=== PATIENT | female | born 1995 | race Caucasian/White ===

== ENCOUNTER 2016-11-11 21:02 | Emergency (ER) | payer OTHER ==
[~2016-11-11] VITALS: Ht 170.2 cm; Wt 56.0 kg
[2016-11-11 21:11] VITALS: TEMP 37.2; Ht 170.2 cm; Wt 56.0 kg
[2016-11-11] MEDS ORDERED: PRENTAB65 PO (21:15)
[2016-11-11] MEDS ORDERED: SODIUM CHLORIDE 0.9% 1000ML 1,000 ML IV STA ×2 (21:27)
[2016-11-11] MEDS ORDERED: ONDANSETRON INJ 2 MG/ML 2 ML VIAL IV STA (21:27)
[2016-11-11 21:34] VITALS: O2SAT 97
[2016-11-11 22:01] LABS: BASO % 0.2 %; BASO ABS # 0.02 K/uL (0-0.2); COMPLETE YES; EOS % 2.3 %; HEMATOCRIT 31.7 % (37-47); IG% 0.3 %; LYMPH % 19.1 %; LYMPH ABS # 1.74 K/uL (1.2-3.4); MEAN CELL VOLUME 82.8 fL (80-100); MEAN CORPUSCULAR HEMOGLOBIN 27.7 pg (25-34); MEAN CORPUSCULAR HGB CONC 33.4 g/dl (32-36); MEAN PLATELET VOLUME 9.7 fL (7.4-10.4); MONO % 5.4 %; NEUT % 72.7 %; PLATELET COUNT 217 K/uL (130-400); RED BLOOD COUNT 3.83 M/uL (4.2-5.4); WHITE BLOOD COUNT 9.09 K/uL (4.8-10.8)
[2016-11-11 22:10] LABS: PARTIAL THROMBOPLASTIN RATIO 0.9; PROTHROMBIN TIME (PATIENT) 10.7 SECONDS (9.0-12.0)
[2016-11-11 22:18] LABS: BUN/CREATININE RATIO 12.5 (10-20); CALCIUM 8.7 mg/dl (8.5-10.1); CREATININE 0.63 mg/dl (0.60-1.20); POTASSIUM 3.3 mmol/L (3.5-5.1)
[2016-11-11 22:21] LABS: ALB/GLOB RATIO 1.2 (0.9-2)
[2016-11-11] MEDS ORDERED: POTASSIUM CHLORIDE 10 MEQ TABCR PO STA (22:31)
[2016-11-12 00:19] LABS: URINE APPEARANCE CLEAR (CLEAR); URINE BILIRUBIN NEG (NEG); URINE COLOR ORANGE; URINE EPITHELIAL CELL AUTO >30 /lpf (0-5); URINE NITRITE NEG (NEG); URINE SPECIFIC GRAVITY 1.011 (1.000-1.030); UROBILINOGEN NEG (NEG); ZZUR CULT IF INDIC CLEAN CATCH NO
[2016-11-12 00:26] LABS: MANUAL MICROSCOPIC REQUIRED? NO; REVIEW REQ? YES
[2016-11-12] MEDS ORDERED: ONDANSETRON HOME PACK 4MG OD TAB ONE (01:08)
[2016-11-12] MEDS ORDERED: ONDANSETRON HOME PACK 4MG OD TAB PO ONE (01:15)
[2016-11-12 01:18] VITALS: BP 109/70; PULSE 86; O2SAT 98
--- NOTE | 2016-11-12 01:58 | EMERGENCY ROOM VISIT NOTE ---
History First contact with patient: 21:21 Chief Complaint: ED VAG BLEEDING Stated Complaint: VAGINAL BLEEDING History of Present Illness The patient is a 21 year old female who presents to the Emergency Room with complaints of heavy vaginal bleeding who should be about 12 weeks but unfortunately the ultrasound showed that she is still 6 weeks with only a yolk sac present that was done today at [facility]. Patient was offered Misoprostol today at the OB doctor but opted to wait to see if the fetus would pass on its own. This is the patient's second . She has one living child. Blood type is A+. Patient states the bleeding was light the other day and now is quite heavy today. She has gone through 5-6 pads. Patient did get lightheaded and had a brief syncopal episode today. Patient states she's passed products of conception also. Patient describes the pain as cramping, ranging in severity 5 out of 10 and nothing makes it better or worse. Patient denies chest pain, dyspnea, fever, chills, back pain, urinary symptoms. Review of Systems See HPI for pertinent positives & negatives. A total of 10 systems reviewed and were otherwise negative. Past Medical/Surgical History None Social History Smoking Status: Never Smoker Smokeless Tobacco Use: No Alcohol Use: none Drug Use: none Marital Status: Housing Status: lives with family Current/Historical Medications Scheduled Multivit-Min W/Fe-Fa (), 1 TAB PO DAILY Physical Exam Vital Signs Date Time Temp Pulse Resp B/P (MAP) Pulse Ox O2 Delivery O2 Flow Rate FiO2 11/12/16 01:18 86 18 109/70 98 11/12/16 00:12 99 18 109/67 98 Room Air 11/11/16 22:57 103 18 106/64 99 Room Air 11/11/16 22:04 82 11/11/16 21:55 92 18 103/75 98 Room Air 11/11/16 21:34 97 Room Air 11/11/16 21:11 37.2 116 24 112/93 100 Room Air Physical Exam VITALS: Vitals are noted on the nurse's note and reviewed by myself. Vital signs stable. GENERAL: Pleasant female, in no acute distress, nondiaphoretic, well-developed well-nourished. SKIN: Capillary reflex less than 2 seconds. HEENT: Normocephalic. PERRLA. EOMI. Nares patent. Mucous membranes moist. Neck is supple without nuchal rigidity. HEART: Regular rate and rhythm without murmurs gallops or rubs. LUNGS: Clear to auscultation bilaterally without wheezes, rales or rhonchi. No retractions or accessory muscle use. ABDOMEN: Positive bowel sounds x 4. Normal tympanic percussion. Soft, end to palpation suprapubic region, no CVA tenderness, without masses or organomegaly. Donnelly sign negative. No guarding or rebound tenderness. Use exam: Normal external female genitalia, MUSCULOSKELETAL: No gross musculoskeletal defects. No pedal edema. No calf tenderness. NEURO: Patient was alert and oriented to person place and time. Normal sensation to light and sharp touch. No focal neurological deficits. Medical Decision & Procedures Laboratory Results 11/11/16 21:49 Red Blood Count 3.83, Mean Corpuscular Volume 82.8, Mean Corpuscular Hemoglobin 27.7, Mean Corpuscular Hemoglobin Concent 33.4, Mean Platelet Volume 9.7, Neutrophils (%) (Auto) 72.7, Lymphocytes (%) (Auto) 19.1, Monocytes (%) (Auto) 5.4, Eosinophils (%) (Auto) 2.3, Basophils (%) (Auto) 0.2, Neutrophils # (Auto) 6.60, Lymphocytes # (Auto) 1.74, Monocytes # (Auto) 0.49, Eosinophils # (Auto) 0.21, Basophils # (Auto) 0.02 11/11/16 21:49 Test 11/11/16 21:49 11/12/16 00:00 White Blood Count 9.09 K/uL (4.8-10.8) Red Blood Count 3.83 M/uL (4.2-5.4) Hemoglobin 10.6 g/dL (12.0-16.0) Hematocrit 31.7 % (37-47) Mean Corpuscular Volume 82.8 fL (80-100) Mean Corpuscular Hemoglobin 27.7 pg (25-34) Mean Corpuscular Hemoglobin Concent 33.4 g/dl (32-36) Platelet Count 217 K/uL (130-400) Mean Platelet Volume 9.7 fL (7.4-10.4) Neutrophils (%) (Auto) 72.7 % Lymphocytes (%) (Auto) 19.1 % Monocytes (%) (Auto) 5.4 % Eosinophils (%) (Auto) 2.3 % Basophils (%) (Auto) 0.2 % Neutrophils # (Auto) 6.60 K/uL (1.4-6.5) Lymphocytes # (Auto) 1.74 K/uL (1.2-3.4) Monocytes # (Auto) 0.49 K/uL (0.11-0.59) Eosinophils # (Auto) 0.21 K/uL (0-0.5) Basophils # (Auto) 0.02 K/uL (0-0.2) RDW Standard Deviation 40.5 fL (36.4-46.3) RDW Coefficient of Variation 13.3 % (11.5-14.5) Immature Granulocyte % (Auto) 0.3 % Immature Granulocyte # (Auto) 0.03 K/uL (0.00-0.02) Prothrombin Time 10.7 SECONDS (9.0-12.0) Prothromb Time International Ratio 1.0 (0.9-1.1) Activated Partial Thromboplast Time 23.5 SECONDS (21.0-31.0) Partial Thromboplastin Ratio 0.9 Anion Gap 6.0 mmol/L (3-11) Est Creatinine Clear Calc Drug Dose 122.8 ml/min Estimated GFR () 146.5 Estimated GFR (Non- 126.4 BUN/Creatinine Ratio 12.5 (10-20) Calcium Level 8.7 mg/dl (8.5-10.1) Total Bilirubin 0.3 mg/dl (0.2-1) Aspartate Amino Transf (AST/SGOT) 10 U/L (15-37) Alanine Aminotransferase (ALT/SGPT) 17 U/L (12-78) Alkaline Phosphatase 44 U/L (45-117) Total Protein 6.4 gm/dl (6.4-8.2) Albumin 3.5 gm/dl (3.4-5.0) Globulin 2.9 gm/dl (2.5-4.0) Albumin/Globulin Ratio 1.2 (0.9-2) Human Chorionic Gonadotropin, Quant 3454 mIU/mL Urine Color ORANGE Urine Appearance CLEAR (CLEAR) Urine pH 7.0 (4.5-7.5) Urine Specific [place] 1.011 (1.000-1.030) Urine Protein NEG (NEG) Urine Glucose (UA) NEG (NEG) Urine Ketones NEG (NEG) Urine Occult Blood 3+ (NEG) Urine Nitrite NEG (NEG) Urine Bilirubin NEG (NEG) Urine Urobilinogen NEG (NEG) Urine Leukocyte Esterase NEG (NEG) Urine WBC (Auto) 1-5 /hpf (0-5) Urine RBC (Auto) >30 /hpf (0-4) Urine Hyaline Casts (Auto) 1-5 /lpf (0-5) Urine Epithelial Cells (Auto) >30 /lpf (0-5) Urine Bacteria (Auto) NEG (NEG) Urine Renal Epithelial Cells 0-5 /lpf (0-5) Medications Administered Medications (Trade) Dose Ordered Sig/Ken Route Start Time Stop Time Status Last Admin Dose Admin Ondansetron HCl (Zofran Inj) 4 mg NOW STAT IV 11/11/16 21:27 11/11/16 21:31 DC 11/11/16 21:51 4 MG Sodium Chloride 1,000 ml @ 999 mls/hr Q1H1M STAT IV 11/11/16 21:27 11/11/16 22:27 DC 11/11/16 21:50 999 MLS/HR Potassium Chloride (Klor-Con M10) 20 meq NOW STAT PO 11/11/16 22:31 11/11/16 22:32 DC 11/12/16 00:11 20 MEQ Ondansetron HCl (ZOFRAN ODT 4MG Home Pack) 1 homepack UD ONCE PO 11/12/16 01:15 11/12/16 01:16 DC 11/12/16 01:10 1 HOMEPACK ED Course Prior records/ancillary studies reviewed. Triage Nursing notes reviewed. Additional history obtained from the family. The patient's history was concerning for vaginal bleeding and abdominal pain who is suppose to be 12 weeks but US today showed she is 6 weeks with no pole. Differential diagnosis: Etiologies such as retained products of conception, , septic , incomplete , , bleeding dyscrasia, trauma, infection, as well as others were entertained. Physical examination: As above. Vitals signs revealed stable. ER treatment provided: IV fluids, Zofran On reassessment the patient felt better. Diagnostic interpretation by me: The labs revealed the patient to the Rh A+. Mild anemia Quantitative hCG was 3400 Imaging studies: Ultrasound shows no gestational sac. Consultation: A consultation was placed with the medical sales specialist physician, Dr Shaw. The case was discussed and diagnostics were reviewed. He recommends discharge and follow-up outpatient clinic in next few days. This appears to be consistent with incomplete miscarriage. Patient did not have acute abdomen on exam. She is well-appearing. Stable vital signs. Patient is agreeable to treatment plan of following up with OB outpatient. She is advised to follow-up with her JUDICIAL ASSISTANT in a day or 2 or here in the ER sooner for heavy bleeding, syncope, weakness, worsening signs or symptoms or as needed. By the evaluation outlined above emergent etiologies such as bleeding dyscrasia, ectopic , trauma, as well as others were deemed relatively unlikely. The pt informed about the findings as listed above. All questions were answered and pleased with the treatment. Return instructions were outlined and the patient was discharged in stable condition. Referral: The patient was referred to JUDICIAL ASSISTANT for follow-up in 2 to 3 days for a recheck of her current condition. Case reviewed with my attending. Medical Decision as above Medication Reconcilliation Current Medication List: was personally reviewed by me Blood Pressure Screening Patient's blood pressure: Normal blood pressure Impression Primary Impression: Incomplete miscarriage Additional Impressions: Anemia Hypokalemia Departure Information Dispostion Home / Self-Care Condition GOOD Referrals No Doctor, Assigned (PCP) Patient Instructions [facility] Additional Instructions Rest. Stay well hydrated. No strenuous activity or intercourse until cleared by JUDICIAL ASSISTANT. Zofran 4 tablet every 6 hours as needed for nausea and vomiting. Acetaminophen(Tylenol) may be used for fever or pain. Use 1000mg every six hours as needed. Avoid using more than 3000mg in a 24 hour period. Rest and drink plenty of fluids as tolerated. Continue current medications. Return to the ER immediately for worsening or persistent heavy vaginal bleeding , abdominal pain, vomiting, fevers, chest pains, difficulty breathing, worsening of your condition, or as needed. Follow up with your JUDICIAL ASSISTANT in 2-3 days for a recheck of your current condition. Problem Qualifiers
--- NOTE | 2016-11-12 06:44 | DIAGNOSTIC IMAGING REPORT ---
LIMITED (US) CLINICAL HISTORY: Vaginal bleeding. Possible retained products of conception. Possible miscarriage. Positive beta hCG. COMPARISON STUDY: No previous studies for comparison. FINDINGS: The uterus measured 11.9 x 4.9 x 5.5 cm. There is a heterogeneous mildly thickened endometrium measuring 16 mm. No gestational sac is visualized. The right ovary measures 20 x 14 x 27 mm. The left ovary measures 30 x 17 x 25 mm. No free fluid was visualized. IMPRESSION: 1. Heterogeneous endometrium. No gestational sac identified. 2. Given the clinical history of a 12 week , this likely represents a spontaneous . 3. Correlation with serial quantitative beta hCGs is recommended. Electronically signed by: Jasbir Mathis M.D. 11/12/2016 6:42 AM Dictated Date/Time: 11/12/2016 6:40 AM
== END 2016-11-12 01:18 | disposition home or self-care (01) ==
LOC: C.EDB 21:02
DX: O03.4 Incomplete spontaneous abortion without complication (principal); D64.9 Anemia, unspecified; E87.6 Hypokalemia

== ENCOUNTER 2018-03-20 23:39 | Inpatient (IN) ==
[2018-03-21] MEDS ORDERED: LACTATED RINGER'S 1,000 ML IV PRN ×2 (00:18→01:25)
[2018-03-21] MEDS ORDERED: LACTATED RINGER'S 1,000 ML IV SCH (00:30)
[2018-03-21 00:44] LABS: Hematocrit (blood only) 36.1 % (37-47); Mean Corpuscular Volume 84.1 fL (80-100); Mean Platelet Volume 10.4 fL (7.4-10.4); Platelet Count 195 K/uL (130-400); RDW Coefficient of Variation 15.3 % (11.5-14.5); RDW Standard Deviation 47.1 fL (36.4-46.3); Red Blood Count 4.29 M/uL (4.2-5.4); White Blood Count 9.93 K/uL (4.8-10.8)
[2018-03-21 00:48] LABS: Mean Corpuscular Hgb Conc 33.2 g/dL (32-36)
[2018-03-21] MEDS ORDERED: BUPIVACAINE 0.25% 30 ML VIAL ONE (00:51)
[2018-03-21] MEDS ORDERED: ePHEDrine sulfate 50 MG/ML AMP ONE (00:51)
[2018-03-21] MEDS ORDERED: fentaNYL citrate 100 MCG/2 ML VIAL ONE (00:52)
[2018-03-21] MEDS ORDERED: fentaNYL 2MCG/ML ROPIV 1.25MG/ML 100 ML BAG EPI ONE (00:53)
--- NOTE | 2018-03-21 01:10 | Obstetrical Progress Note ---
Date of Service March 21, 2018 Subjective 22 F P1010 at 40.2 weeks admitted in labor. Cervix 5 cm. GBS is negative. FHT Cat 1 with contractions 3-4 minutes. Patient requesting an epidural. Anticipate normal delivery. Physical Exam 2 Vital Signs (Past 24 Hours): Last Vital Signs Temp 36.7 C 03/21/18 00:02 Pulse 97 H 03/21/18 01:06 Resp 18 03/21/18 00:02 BP 137/83 03/20/18 23:50 Pulse Ox 99 03/21/18 01:06
[2018-03-21] MEDS ORDERED: fentaNYL 2MCG/ML ROPIV 1.25MG/ML 100 ML BAG EPI PRN (01:25)
[2018-03-21] MEDS ORDERED: PROMETHAZINE HCL 6.25 MG in SODIUM CHLORIDE 0.9% 50 ML IV PRN (01:25)
[2018-03-21] MEDS ORDERED: NALOXONE HCL 1 MG in SODIUM CHLORIDE 0.9% 1000ML 1,000 ML IV PRN (01:25)
[2018-03-21] MEDS ORDERED: NALOXONE HCL 0.4 MG/1 ML VIAL/CARP IV PRN (01:25)
[2018-03-21] MEDS ORDERED: DiphenhydrAMINE HCL 50 MG/ML VIAL IV PRN (01:25)
[2018-03-21] MEDS ORDERED: NALBUPHINE HCL INJ 10 MG/ML AMP IV PRN (01:25)
[2018-03-21] MEDS ORDERED: ONDANSETRON INJ 2 MG/ML 2 ML VIAL IV PRN (01:25)
[2018-03-21] MEDS ORDERED: ePHEDrine sulfate 50 MG/ML AMP IV PRN (01:25)
--- NOTE | 2018-03-21 01:25 | Anesthesiology Consultation ---
Date of Service March 21, 2018 Assessment & Plan (1) Encounter for pre-operative examination: Chart Review Chart Review: Patient NOT seen in Pre Admission Testing and Acceptable Risk for Labor Epidural Consults Requested none ASA ASA2 Proposed Anesthesia Anesthesia Type: Labor Epidural Risk / Benefits Reviewed With: PT / POA / Parent / Guardian, Accepts Plan and Informed Consent Obtained NPO Date Last Intake of Fluids: 03/20/18 Time Last Intake of Fluids: 18:25 Date Last Intake of Solids: 03/20/18 Time Last Intake of Solids: 18:25 History Height/Weight Height: 5 ft 6 in Weight: 79 kg Allergies Allergy/AdvReac Type Severity Reaction Status Date / Time No Known Allergies Allergy Unverified 11/11/16 21:14 Medications Home Medications Medication Instructions Recorded Confirmed Last Taken ferrous sulfate [iron] 325 mg PO DAILY 03/11/18 03/21/18 03/20/18 20:00 95-iron aoc-syuuw-pyk 1 cap/day PO DAILY 03/11/18 03/21/18 03/20/18 20: 00 [ + DHA] Active Medications Generic Name Dose Route Start Last Admin Trade Name aWqarq PRN Reason Stop Dose Admin Lactated Ringer's 1,000 mls @ 999 mls/hr 03/21/18 00:18 03/21/18 00:45 Lr IV 04/20/18 00:17 999 mls/hr .Q1H1M PRN Administration (Pre-Anesthesia) Social History Smoking Status: Never smoker Hx Alcohol Use: No Hx Substance Use: No substance use type: does not use Physical Exam Vital Signs Last Vital Signs Temp 36.7 C 03/21/18 00:02 Pulse 101 H 03/21/18 01:23 Resp 18 03/21/18 01:20 BP 118/77 03/21/18 01:23 Pulse Ox 98 03/21/18 01:21 ENMT Mouth: no dentition abnormality Thyromental Distance: > or= 3.5 Finger Breadths Mallampati Class: II Neck normal visual inspection; neck extension not limited Respiratory normal respiratory effort Auscultation: lungs clear to auscultation bilaterally Cardiovascular Rate/Rhythm: regular rate and regular rhythm Musculoskeletal Spine: normal cervical ROM Psychiatric Orientation: alert and oriented x 3 Testing Laboratory Results 03/21/18 00:36
[2018-03-21] MEDS ORDERED: BISACODYL 10 MG SUPP PR PRN (05:18)
[2018-03-21] MEDS ORDERED: HYDROCORTISONE ACETATE 25 MG SUPP PR PRN (05:18)
[2018-03-21] MEDS ORDERED: SUPERCREAM 0.870% 15 GM JAR EXT PRN (05:18)
[2018-03-21] MEDS ORDERED: ACETAMINOPHEN 325 MG TAB PO PRN (05:18)
[2018-03-21] MEDS ORDERED: BENZOCAINE 20% AER SPR 82.5 GM CAN EXT PRN (05:18)
[2018-03-21] MEDS ORDERED: OXYTOCIN 30 UNITS/500 ML BAG IV PRN (05:18)
--- NOTE | 2018-03-21 05:26 | Procedure Note ---
Vaginal Delivery Summary Date of Service March Delivery Note live male over intact perineum CARINA with delayed cord clamping and true knot in cord with 3VC. Cord blood obtained and placenta delivered spontaneously and intact No tears. EBL 200 ml. Final sponge and instrument count are correct. Mom and baby in stable condition.
[2018-03-21] MEDS ORDERED: MEASLES, MUMPS & RUBELLA VIRUS VIAL SQ ONE (06:15)
[2018-03-21] MEDS ORDERED: DIPHTHERIA/TETANUS/PERTUSSIS 0.5 ML SYR/VIAL IM ONE (06:15)
--- NOTE | 2018-03-21 07:10 | Anesthesia Procedure Note ---
Date of Service March 21, 2018 Anesthesia Post Epidural Note Vital Signs Vital Signs: Temp Pulse Resp BP Pulse Ox 03/21/18 07:00 90 127/67 03/21/18 06:45 95 H 119/59 L 03/21/18 06:32 18 03/21/18 06:30 105 H 128/63 03/21/18 06:27 18 03/21/18 06:16 108 H 129/57 L 03/21/18 06:02 18 03/21/18 06:01 105 H 136/66 03/21/18 05:58 18 03/21/18 05:57 18 03/21/18 05:45 103 H 116/73 03/21/18 05:42 18 03/21/18 05:29 100 H 109/69 03/21/18 05:12 37.1 C 121 H 18 130/55 L 03/21/18 05:06 112 H 97 03/21/18 05:01 165 H 100 03/21/18 04:57 90 139/77 03/21/18 04:56 92 H 97 03/21/18 04:51 80 98 03/21/18 04:46 84 98 03/21/18 04:42 107 H 127/63 03/21/18 04:41 127 H 98 03/21/18 04:36 87 98 03/21/18 04:31 158 H 98 03/21/18 04:27 86 126/58 L 03/21/18 04:26 152 H 99 03/21/18 04:21 83 97 03/21/18 04:16 116 H 100 03/21/18 04:14 114 H 133/73 03/21/18 04:11 97 H 99 03/21/18 04:10 37.1 C 03/21/18 04:06 96 H 98 03/21/18 04:01 84 97 03/21/18 03:57 99 H 120/67 03/21/18 03:56 100 H 97 03/21/18 03:52 36.6 C 18 03/21/18 03:51 91 H 98 03/21/18 03:46 86 99 03/21/18 03:43 92 H 118/63 03/21/18 03:41 92 H 98 03/21/18 03:36 85 97 03/21/18 03:31 84 96 03/21/18 03:26 91 H 104/55 L 97 03/21/18 03:21 88 97 03/21/18 03:16 96 H 96 03/21/18 03:11 100 H 97 03/21/18 03:06 86 96 03/21/18 03:01 88 96 03/21/18 02:59 109 H 94 03/21/18 02:57 101 H 110/60 03/21/18 02:56 79 95 03/21/18 02:53 99 H 94 03/21/18 02:51 95 H 95 03/21/18 02:46 94 H 95 03/21/18 02:43 89 94 03/21/18 02:41 78 95 03/21/18 02:36 89 95 03/21/18 02:31 88 96 03/21/18 02:27 103 H 108/65 03/21/18 02:26 103 H 98 03/21/18 02:21 107 H 97 03/21/18 02:16 105 H 98 03/21/18 02:12 95 H 113/70 03/21/18 02:11 86 98 03/21/18 02:06 97 H 97 03/21/18 02:01 87 97 03/21/18 01:58 85 111/77 03/21/18 01:56 84 98 03/21/18 01:51 80 99 03/21/18 01:46 101 H 99 03/21/18 01:45 18 03/21/18 01:41 85 121/74 98 03/21/18 01:39 80 115/68 03/21/18 01:37 83 124/83 03/21/18 01:36 84 98 03/21/18 01:35 98 H 119/84 03/21/18 01:33 100 H 123/87 03/21/18 01:31 97 H 120/84 97 03/21/18 01:30 18 03/21/18 01:29 95 H 123/87 03/21/18 01:27 103 H 126/90 03/21/18 01:26 104 H 98 03/21/18 01:25 107 H 123/88 03/21/18 01:23 101 H 118/77 03/21/18 01:21 93 H 124/80 98 03/21/18 01:20 18 03/21/18 01:19 89 119/79 03/21/18 01:17 93 H 123/79 03/21/18 01:16 94 H 98 03/21/18 01:15 18 03/21/18 01:11 90 98 03/21/18 01:10 18 03/21/18 01:06 97 H 99 03/21/18 01:05 18 03/21/18 00:02 36.7 C 18 03/20/18 23:50 93 H 137/83 Notes Mental Status: alert / awake / arousable and participated in evaluation Nausea / Vomiting: adequately controlled Pain: adequately controlled Airway Patency, RR, SpO2: stable & adequate BP & HR: stable & adequate Hydration State: stable & adequate Neuraxial Anesthesia: was administered and sensory block is resolving Anesthetic Complications: no major complications apparent and Pt Satisfied with anesthetic care Epidural: Removed without complications and With tip intact Notes: Neurologically intact. Patient denies headache at this time.
[2018-03-21] MEDS: DOCUSATE SODIUM 100 MG CAP PO SCH ×2 (07:47→19:53)
[2018-03-21] MEDS ORDERED: FERROUS SULFATE 325 MG TAB PO SCH ×2 (09:00)
[2018-03-21] MEDS ORDERED: PRENATAL VITAMIN 1 TAB PO SCH ×2 (09:00)
[2018-03-21] MEDS: IBUPROFEN 600 MG TAB PO PRN ×2 (12:45→23:37)
--- NOTE | 2018-03-21 14:42 | Obstetrical Progress Note ---
Date of Service March 21, 2018 Subjective Patient is seen and examined. She feels well, no complaints. Ambulating without dizziness Voiding without difficulty Tolerating regular diet with out N&V Bleeding is minimal No fever/ chills/ CP/ SOB/ N&V/ Leg pain Breast feeding without problems Vital Signs Temp Pulse Pulse Resp BP BP Pulse Ox 03/21/18 11:30 36.4 C L 93 H 16 115/76 98 03/21/18 08:10 36.5 C 100 H 16 129/73 99 03/21/18 07:45 93 H 130/62 03/21/18 07:16 100 H 122/63 03/21/18 07:00 90 127/67 03/21/18 06:45 95 H 119/59 L 03/21/18 06:32 18 03/21/18 06:30 105 H 128/63 03/21/18 06:27 18 03/21/18 06:16 108 H 129/57 L 03/21/18 06:02 18 03/21/18 06:01 105 H 136/66 03/21/18 05:58 18 03/21/18 05:57 18 03/21/18 05:45 103 H 116/73 03/21/18 05:42 18 03/21/18 05:29 100 H 109/69 03/21/18 05:12 37.1 C 121 H 18 130/55 L 03/21/18 05:06 112 H 97 03/21/18 05:01 165 H 100 03/21/18 04:57 90 139/77 03/21/18 04:56 92 H 97 03/21/18 04:51 80 98 03/21/18 04:46 84 98 03/21/18 04:42 107 H 127/63 03/21/18 04:41 127 H 98 03/21/18 04:36 87 98 03/21/18 04:31 158 H 98 03/21/18 04:27 86 126/58 L 03/21/18 04:26 152 H 99 03/21/18 04:21 83 97 03/21/18 04:16 116 H 100 03/21/18 04:14 114 H 133/73 03/21/18 04:11 97 H 99 03/21/18 04:10 37.1 C 03/21/18 04:06 96 H 98 03/21/18 04:01 84 97 03/21/18 03:57 99 H 120/67 03/21/18 03:56 100 H 97 03/21/18 03:52 36.6 C 18 03/21/18 03:51 91 H 98 03/21/18 03:46 86 99 03/21/18 03:43 92 H 118/63 03/21/18 03:41 92 H 98 03/21/18 03:36 85 97 03/21/18 03:31 84 96 03/21/18 03:26 91 H 104/55 L 97 03/21/18 03:21 88 97 03/21/18 03:16 96 H 96 03/21/18 03:11 100 H 97 03/21/18 03:06 86 96 03/21/18 03:01 88 96 03/21/18 02:59 109 H 94 03/21/18 02:57 101 H 110/60 03/21/18 02:56 79 95 03/21/18 02:53 99 H 94 03/21/18 02:51 95 H 95 03/21/18 02:46 94 H 95 03/21/18 02:43 89 94 PE: General: Alert, orientedx3, NAD Abd: soft, NT, fundus firm, below Umbilicus Perineum intact, Lochia rubra minimal Ext; NT, no edema AP: 22 yo s/p , ppd# 0 VSS Afebrile doing well Continue routine care All questions were answered Desires D/C home tomorrow Physical Exam 2 Vital Signs (Past 24 Hours): Last Vital Signs Temp 36.4 C L 03/21/18 11:30 Pulse 93 H 03/21/18 11:30 Resp 16 03/21/18 11:30 BP 115/76 03/21/18 11:30 Pulse Ox 98 03/21/18 11:30
[2018-03-22 08:00] LABS: Hemoglobin 11.8 g/dL (12.0-16.0); Mean Corpuscular Hgb Conc 33.7 g/dL (32-36); Mean Corpuscular Volume 85.6 fL (80-100); Mean Platelet Volume 10.4 fL (7.4-10.4); Platelet Count 165 K/uL (130-400); RDW Coefficient of Variation 15.4 % (11.5-14.5); RDW Standard Deviation 48.6 fL (36.4-46.3); Red Blood Count 4.09 M/uL (4.2-5.4); White Blood Count 8.08 K/uL (4.8-10.8)
[2018-03-22] MEDS: DOCUSATE SODIUM 100 MG CAP PO SCH (08:31)
--- NOTE | 2018-03-22 11:57 | Obstetrical Progress Note ---
Date of Service March 22, 2018 Subjective doing fine no complaints of bleeding or pain breast feeding well tolerating diet Physical Exam 2 Vital Signs (Past 24 Hours): Last Vital Signs Temp 36.8 C 03/22/18 08:15 Pulse 100 H 03/22/18 08:15 Resp 16 03/22/18 08:15 BP 115/76 03/22/18 08:15 Pulse Ox 97 03/22/18 08:15 Constitutional: WD/WN, vitals as above comfortable Results & Data Laboratory Results Laboratory Results - last 24 hr 03/22/18 07:29 WBC 8.08 RBC 4.09 L Hgb 11.8 L Hct 35.0 L MCV 85.6 MCH 28.9 MCHC 33.7 RDW Std Deviation 48.6 H RDW Coeff of Rubné 15.4 H Plt Count 165 MPV 10.4 POD #1 discharged home
[2018-03-22] MEDS: IBUPROFEN 600 MG TAB PO PRN (14:09)
[2018-03-22] MEDS ORDERED: BISACODYL 5 MG TABEC PO SCH (20:00)
== END 2018-03-22 17:20 | disposition home or self-care (01) | DRG 807 ==
LOC: OPB 23:39 → 4S1 23:45 → 4N 03-21 09:37

== ENCOUNTER 2019-12-19 07:13 | Inpatient (IN) ==
--- OUTSIDE RECORDS SUMMARY | 2019-12-19 07:19 | External Medical Summary | Continuity of Care Document ---
:1995 Author Name Kelli Artis, Provider Address Unavailable Unavailable , Care Team Providers Name Role Phone Vidhi Artis, Sathya Lu Unavailable [email or web address] PCP, NO Unavailable Unavailable Unavailable Unavailable Unavailable Problems Active medical history not documented Allergies and Adverse Reactions Allergy history not documented Medications Medications not documented Procedures Procedures not documented Immunizations Immunizations not documented Plan of Treatment Planned Observations Planned Goals not documented Results No Known Results Results not documented Encounters Appointment; Sathya Mosher M.D. 03-Aug-2017 15:30 Encounter Diagnosis: Problem not documented
[2019-12-19] MEDS ORDERED: OXYTOCIN 30 UNITS/500 ML BAG IV PRN ×2 (07:58→15:06)
[2019-12-19] MEDS ORDERED: PENICILLIN G POTASSIUM 3 MU in DEXTROSE 5% 100 ML IV PRN (07:58)
[2019-12-19] MEDS ORDERED: PENICILLIN G POTASSIUM 6 MU in DEXTROSE 5% 250 ML IV STA (08:04)
[2019-12-19] MEDS: LACTATED RINGER'S 1,000 ML IV PRN ×2 (08:12→09:07)
[2019-12-19 08:17] LABS: Hematocrit (blood only) 36.7 % (37-47); Hemoglobin 12.2 g/dL (12.0-16.0); Mean Corpuscular Hemoglobin 28.4 pg (25-34); Mean Corpuscular Volume 85.3 fL (80-100); Mean Platelet Volume 10.6 fL (7.4-10.4); Platelet Count 161 K/uL (130-400); RDW Coefficient of Variation 15.6 % (11.5-14.5); RDW Standard Deviation 48.4 fL (36.4-46.3); White Blood Count 11.28 K/uL (4.8-10.8)
[2019-12-19 08:20] LABS: Mean Corpuscular Hgb Conc 33.2 g/dL (32-36)
[2019-12-19] MEDS ORDERED: ePHEDrine sulfate 50 MG/ML AMP ONE (08:23)
[2019-12-19] MEDS ORDERED: fentaNYL 2MCG/ML ROPIV 1.25MG/ML 100 ML BAG EPI ONE (08:24)
[2019-12-19] MEDS ORDERED: fentaNYL citrate 100 MCG/2 ML VIAL ONE (08:24)
[2019-12-19] MEDS ORDERED: BUPIVACAINE 0.25% 30 ML VIAL ONE (08:24)
[2019-12-19] MEDS ORDERED: fentaNYL 2MCG/ML ROPIV 1.25MG/ML 100 ML BAG EPI PRN (08:25)
[2019-12-19] MEDS ORDERED: PROMETHAZINE HCL 25 MG in SODIUM CHLORIDE 0.9% 50 ML IV PRN (08:25)
[2019-12-19] MEDS ORDERED: ONDANSETRON INJ 2 MG/ML 2 ML VIAL IV PRN ×2 (08:25→15:52)
[2019-12-19] MEDS ORDERED: NALOXONE HCL 0.4 MG/1 ML VIAL/CARP IV PRN (08:25)
[2019-12-19] MEDS ORDERED: NALOXONE HCL 1 MG in SODIUM CHLORIDE 0.9% 1000ML 1,000 ML IV PRN (08:25)
[2019-12-19] MEDS ORDERED: DiphenhydrAMINE HCL 50 MG/ML VIAL IV PRN (08:25)
[2019-12-19] MEDS ORDERED: ePHEDrine sulfate 50 MG/ML AMP IV PRN (08:25)
--- NOTE | 2019-12-19 08:27 | Anesthesiology Consultation ---
Date of Service December 19, 2019 Assessment & Plan ASA ASA2 Proposed Anesthesia Anesthesia Type: Labor Epidural Risk / Benefits Reviewed With: PT / POA / Parent / Guardian, Accepts Plan and Informed Consent Obtained History Allergies Allergy/AdvReac Type Severity Reaction Status Date / Time No Known Allergies Allergy Verified 03/21/18 01:28 Medications Home Medications Medication Instructions Recorded Confirmed Last Taken ferrous sulfate [iron] 325 mg PO DAILY 03/11/18 03/21/18 03/20/18 20:00 95-iron eak-sdroo-aow 1 cap/day PO DAILY 03/11/18 03/21/18 03/20/18 20 :00 [ + DHA] ibuprofen 600 mg PO Q6H PRN #30 tab 03/22/18 Unknown Active Medications Generic Name Dose Route Start Last Admin Trade Name Freq PRN Reason Stop Dose Admin Lactated Ringer's 1,000 mls @ 125 mls/hr 12/19/19 07:58 12/19/19 08:12 Lr IV 12/21/19 07:57 999 mls/hr .Q8H PRN Administration L&D Protocol Protocol Penicillin G Potassium 6 mu/ 262 mls @ 250 mls/hr 12/19/19 08:04 12/19/19 08:18 Dextrose IV 12/19/19 09:06 250 mls/hr NOW STA Administration Protocol Ropivacaine 100 ml 12/19/19 08:25 12/19/19 08:57 Fentanyl 2mcg/Ml Ropiv 1.25mg/Ml 100 Ml Bag EPI 12/20/19 08:24 12 ml PRN PRN Administration Pain R/T Labor Protocol Exercise / Class Metabolic Activity II 4-5 Yardwork/Stairs/Walk up hill Past Anesthesia History No Hx of Anesthesia Complications and No Family Hx of Anesthesia Complications History of PONV No Hx of PONV and No Hx of Motion Sickness Social History Smoking Status: Never smoker Hx Alcohol Use: No Hx Substance Use: No substance use type: does not use Review of Systems denies fever/cough/ colds/ chest pain/ SOB/ DEREK Constitutional: no fever and no chills Respiratory: no cough and no dyspnea denies DEREK Cardiovascular: no chest pain and no dyspnea on exertion Physical Exam Vital Signs Last Vital Signs Pulse 98 H 12/19/19 08:59 BP 116/72 12/19/19 08:59 Pulse Ox 98 12/19/19 08:54 ENMT Mouth: no TMJ abnormality and no dentition abnormality Thyromental Distance: > or= 3.5 Finger Breadths Mallampati Class: II Neck neck extension not limited Respiratory normal respiratory effort; no respiratory distress Auscultation: lungs clear to auscultation bilaterally Cardiovascular Rate/Rhythm: regular rate and regular rhythm Neurologic moves all extremities Psychiatric Orientation: alert and oriented x 3 Testing Laboratory Results 12/19/19 08:03
[2019-12-19] MEDS ORDERED: METHYLERGONOVINE MALEATE 0.2 MG/ML AMP ONE (14:55)
[2019-12-19] MEDS ORDERED: ACETAMINOPHEN 325 MG TAB PO PRN (15:06)
[2019-12-19] MEDS ORDERED: BENZOCAINE 20% AER SPR 82.5 GM CAN EXT PRN (15:06)
[2019-12-19] MEDS ORDERED: METHYLERGONOVINE MALEATE 0.2 MG/ML AMP IM ONE (15:06)
[2019-12-19] MEDS ORDERED: DIPHTHERIA/TETANUS/PERTUSSIS 0.5 ML SYR/VIAL IM ONE (15:06)
[2019-12-19] MEDS ORDERED: bisacodyL 10 MG SUPP PR PRN (15:06)
[2019-12-19] MEDS ORDERED: ACETAMINOPHEN W/CODEINE #3 1 TAB PO PRN (15:06)
[2019-12-19] MEDS ORDERED: OXYCODONE/ACETAMINOPHEN 5mg/325mg TAB PO PRN (15:06)
[2019-12-19] MEDS ORDERED: SUPERCREAM 0.870% 15 GM JAR EXT PRN (15:06)
[2019-12-19] MEDS ORDERED: HYDROCORTISONE ACETATE 25 MG SUPP PR PRN (15:06)
--- NOTE | 2019-12-19 15:41 | Anesthesiology Progress Note ---
Date of Service December 19, 2019 Anesthesia Post Procedure Vital Signs Vital Signs: Temp Pulse Resp BP Pulse Ox 12/19/19 15:37 98 H 121/68 12/19/19 15:22 96 H 118/61 12/19/19 15:07 112/61 12/19/19 15:00 94 H 97 12/19/19 14:55 102 H 96 12/19/19 14:53 110 H 132/62 12/19/19 14:50 128 H 98 12/19/19 14:45 118 H 100 12/19/19 14:40 92 H 100 12/19/19 14:38 115 H 140/73 12/19/19 14:35 82 99 12/19/19 14:30 87 18 97 12/19/19 14:25 92 H 98 12/19/19 14:23 95 H 132/72 12/19/19 14:20 97 H 98 12/19/19 14:15 108 H 18 98 12/19/19 14:10 106 H 98 12/19/19 14:09 90 131/81 12/19/19 14:05 93 H 98 12/19/19 14:00 36.9 C 90 18 98 12/19/19 13:55 96 H 98 12/19/19 13:54 121 H 110/73 12/19/19 13:50 103 H 99 12/19/19 13:45 96 H 97 12/19/19 13:40 89 98 12/19/19 13:38 103 H 107/63 12/19/19 13:35 96 H 98 12/19/19 13:30 91 H 18 98 12/19/19 13:25 100 H 99 12/19/19 13:24 18 12/19/19 13:23 88 129/74 12/19/19 13:20 105 H 98 12/19/19 13:15 102 H 97 12/19/19 13:10 91 H 97 12/19/19 13:09 114 H 119/68 12/19/19 13:05 89 98 12/19/19 13:00 120 H 18 98 12/19/19 12:55 80 99 12/19/19 12:54 93 H 127/62 12/19/19 12:50 105 H 99 12/19/19 12:45 94 H 98 12/19/19 12:40 96 H 98 12/19/19 12:38 94 H 112/56 L 12/19/19 12:35 90 99 12/19/19 12:30 96 H 18 99 12/19/19 12:25 91 H 98 12/19/19 12:22 95 H 109/60 12/19/19 12:20 91 H 98 12/19/19 12:15 93 H 98 12/19/19 12:10 92 H 99 12/19/19 12:08 87 108/60 12/19/19 12:05 101 H 98 12/19/19 12:00 36.9 C 98 H 18 97 12/19/19 11:55 100 H 98 12/19/19 11:54 100 H 115/63 12/19/19 11:50 88 96 12/19/19 11:45 98 H 96 12/19/19 11:40 88 97 12/19/19 11:37 88 112/68 12/19/19 11:35 92 H 97 12/19/19 11:30 89 18 97 12/19/19 11:26 98 H 94 12/19/19 11:25 102 H 95 12/19/19 11:23 89 114/67 12/19/19 11:20 87 95 12/19/19 11:15 87 96 12/19/19 11:10 85 95 12/19/19 11:07 91 H 112/65 12/19/19 11:05 87 96 12/19/19 11:00 90 18 96 12/19/19 10:55 106 H 98 12/19/19 10:54 100 H 115/61 12/19/19 10:50 94 H 99 12/19/19 10:45 97 H 96 12/19/19 10:40 82 97 12/19/19 10:37 100 H 115/69 12/19/19 10:35 86 98 12/19/19 10:34 85 94 12/19/19 10:30 87 18 96 12/19/19 10:25 98 H 97 12/19/19 10:23 90 119/73 12/19/19 10:20 89 96 12/19/19 10:15 78 96 12/19/19 10:10 101 H 100 12/19/19 10:08 93 H 117/80 12/19/19 10:05 88 99 12/19/19 10:00 96 H 18 98 12/19/19 09:55 94 H 98 12/19/19 09:54 90 125/62 12/19/19 09:50 100 H 98 12/19/19 09:45 93 H 98 12/19/19 09:40 99 H 100 12/19/19 09:39 86 134/69 12/19/19 09:35 96 H 98 12/19/19 09:30 104 H 18 99 12/19/19 09:25 98 H 99 12/19/19 09:22 93 H 120/74 12/19/19 09:20 96 H 98 12/19/19 09:15 107 H 99 12/19/19 09:10 95 H 98 12/19/19 09:07 93 H 119/76 12/19/19 09:05 98 H 115/78 99 12/19/19 09:03 97 H 117/73 12/19/19 09:01 101 H 118/74 12/19/19 09:00 95 H 18 98 12/19/19 08:59 98 H 116/72 12/19/19 08:57 107 H 12/19/19 08:55 101 H 122/71 12/19/19 08:54 103 H 98 12/19/19 08:53 100 H 118/72 12/19/19 08:51 99 H 124/67 12/19/19 08:49 97 H 115/69 99 12/19/19 08:47 88 134/79 12/19/19 08:45 93 H 125/83 12/19/19 08:44 89 99 12/19/19 08:40 87 131/79 12/19/19 08:39 89 100 12/19/19 08:25 18 12/19/19 08:10 18 12/19/19 07:26 36.8 C 18 12/19/19 07:25 96 H 126/89 Pain Intensity Abdomen: Pain Intensity: 0 Transfer of Care Handoff Completed per policy Notes Mental Status: alert / awake / arousable and participated in evaluation Patient Amnestic to Procedure: Yes Nausea / Vomiting: adequately controlled Pain: adequately controlled Airway Patency, RR, SpO2: stable & adequate BP & HR: stable & adequate Hydration State: stable & adequate Anesthetic Complications: no major complications apparent and Pt Satisfied with anesthetic care
--- NOTE | 2019-12-19 15:59 | Delivery Summary ---
DATE OF OPERATION: 12/19/2019 The patient is a 5, para 3, blood type is A positive, group B strep positive, admitted at 39 weeks 6 days for possible rupture of membranes. After she was admitted, she was found to be about 4-5 cm. Soon after that, she requested and received epidural and she was immediately started on IV Pitocin. She received her initial 6 million unit dose, then 4 hours later 3 million and then after that she was checked again, she was like 7-8 with bulging membranes. Membranes were ruptured surgically. Gross meconium. She had an unstimulated labor, went to full dilatation, pushed out a live female infant via direct occiput anterior position over an intact perineum. There was a tight nuchal cord x2, which was reduced over the head. Then the body and the was delivered without difficulty after thoroughly suctioning the mouth and the nose. Following this the infant breathed and cried spontaneously. We allowed the cord to pulse for 1 full minute, then it was clamped and cut by the father. Cord blood was taken. With IV Pitocin and IM Methergine placenta was removed intact. It was sent for evaluation due to meconium staining. Uterus contracted nicely. She had a first-degree laceration. This was repaired anatomically by approximating the vaginal mucosa out and to beyond the hymenal ring. A deep suture was used to approximate the bulbocavernosus muscle, separate deep suture was used to approximate the perineal body and a running subcuticular suture was used to approximate the perineal skin edge. Following this, uterus contracted nicely. Sponges were removed from the vagina. The patient's blood type is A positive. ESTIMATED BLOOD LOSS: 200 mL. I attest to the content of the Intraoperative Record and any orders documented therein. Any exception s are noted below.
[2019-12-19] MEDS: IBUPROFEN 600 MG TAB PO PRN ×2 (17:25→23:20)
[2019-12-19] MEDS: DOCUSATE SODIUM 100 MG CAP PO SCH (20:25)
[2019-12-20 06:42] LABS: Hematocrit (blood only) 33.2 % (37-47); Hemoglobin 11.3 g/dL (12.0-16.0); Mean Corpuscular Hemoglobin 29.3 pg (25-34); Mean Platelet Volume 10.3 fL (7.4-10.4); Platelet Count 149 K/uL (130-400); RDW Coefficient of Variation 15.7 % (11.5-14.5); RDW Standard Deviation 49.7 fL (36.4-46.3); Red Blood Count 3.86 M/uL (4.2-5.4); White Blood Count 9.91 K/uL (4.8-10.8)
[2019-12-20] MEDS ORDERED: FERROUS SULFATE 325 MG TAB PO SCH (08:00)
[2019-12-20] MEDS ORDERED: PRENATAL VITAMIN 1 TAB PO SCH (08:00)
[2019-12-20] MEDS: DOCUSATE SODIUM 100 MG CAP PO SCH (09:09)
[2019-12-20] MEDS: IBUPROFEN 600 MG TAB PO PRN ×2 (09:09→16:59)
--- NOTE | 2019-12-20 10:15 | Obstetrical Progress Note ---
Date of Service December 20, 2019 Assessment & Plan (1) Normal course: PPD #1 pt doing well anticipate disch PM Results & Data ([facility]) Vital Signs (Past 12 Hours) Vital Signs Temp Pulse Resp BP 12/19/19 23:20 36.4 C L 82 18 100/64
[2019-12-20] MEDS ORDERED: bisacodyL 5 MG TABEC PO SCH (20:00)
== END 2019-12-20 20:45 | disposition home or self-care (01) | DRG 807 ==
LOC: OPB 07:13 → 4S1 07:18 → 4S2 17:50